=== PATIENT | female | born 1975 | race Caucasian/White ===

== ENCOUNTER 2018-05-06 07:46 | Emergency (ER) | payer MEDICAID ==
[~2018-05-06] VITALS: Ht 167.6 cm; Wt 64.0 kg
[2018-05-06] MEDS ORDERED: KETOROLAC 30MG/ML VIAL IM ONE (09:00)
[2018-05-06] MEDS ORDERED: HYDROCODONE/ACETAMINOPHEN 5/325MG TABLET PO ONE ×2 (09:00→15:30)
[2018-05-06] MEDS ORDERED: FLUORESCEIN SODIUM 1MG/STRIP OP ONE (12:15)
[2018-05-06] MEDS ORDERED: TETRACAINE 0.5% OPHTH DROPS 4ML OP ONE (12:15)
[2018-05-06 18:33] VITALS: BP 121/58
== END 2018-05-06 18:44 | disposition short-term general hospital (02) ==
LOC: ER 07:46
DX: S02.31XA Fracture of orbital floor, right side, initial encounter for closed fracture (principal); H20.9 Unspecified iridocyclitis; H54.7 Unspecified visual loss; V43.62XA Car passenger injured in collision with other type car in traffic accident, initial encounter; Y93.9 Activity, unspecified; Y92.410 Unspecified street and highway as the place of occurrence of the external cause
CPT/HCPCS: 70486; 72125; 96372; 99285; J1885